=== PATIENT | female | born 1940 | race Caucasian/White ===

== ENCOUNTER 2016-08-05 06:26 | Inpatient (IN) | payer OTHER, MEDICARE ==
--- NOTE | 2016-07-02 14:06 | PAT Medication Instructions ---
Service Date Jul 02, 2016. Current Home Medication List Calcium (Caltrate), 600 MG PO BID Levothyroxine (Synthroid *), 75 MCG PO QAM Lisinopril (Lisinopril), Unknown Dose PO HS Simvastatin (Zocor), Unknown Dose PO QPM Warfarin Sodium (Coumadin), 4 MG PO T,R,SA,SUN Warfarin Sodium (Coumadin), 6 MG PO MWF Medication Instructions For Your Scheduled Surgery Warfarin Sodium (Coumadin) (patient to hold 5 days prior to surgery per surgeon instructions. Patient will check with cardiology to make sure they approve) - Hold the following medications evening prior to surgery: Lisinopril (Lisinopril), Unknown Dose PO HS - Hold the following medications the morning of surgery: Calcium (Caltrate), 600 MG PO BID - Take the following medications the morning of surgery with a sip of water: Levothyroxine (Synthroid *), 75 MCG PO QAM - Take the following medications as scheduled the night before surgery: Simvastatin (Zocor), Unknown Dose PO QPM Calcium (Caltrate), 600 MG PO BID If you have any questions please call us at [phone] or [phone] ( [place]) or [phone]
[2016-07-02 14:47] LABS: BASO % 0.4 %; BASO ABS # 0.02 K/uL (0-0.2); COMPLETE YES; EOS % 3.5 %; HEMATOCRIT 39.5 % (37-47); IG% 0.2 %; LYMPH % 31.4 %; LYMPH ABS # 1.71 K/uL (1.2-3.4); MEAN CORPUSCULAR HEMOGLOBIN 30.6 pg (25-34); MEAN CORPUSCULAR HGB CONC 33.7 g/dl (32-36); MEAN PLATELET VOLUME 9.7 fL (7.4-10.4); NEUT % 57.5 %; PLATELET COUNT 197 K/uL (130-400); RED BLOOD COUNT 4.34 M/uL (4.2-5.4); WHITE BLOOD COUNT 5.44 K/uL (4.8-10.8)
[2016-07-02 14:48] LABS: URINE APPEARANCE CLEAR (CLEAR); URINE BILIRUBIN NEG (NEG); URINE COLOR YELLOW; URINE NITRITE NEG (NEG); URINE PH 6.5 (4.5-7.5); URINE SPECIFIC GRAVITY 1.013 (1.000-1.030); UROBILINOGEN NEG (NEG); ZZUR CULT IF INDIC CLEAN CATCH NO
[2016-07-02 14:50] LABS: MANUAL MICROSCOPIC REQUIRED? NO; REVIEW REQ? NO
--- NOTE | 2016-07-02 14:54 | DIAGNOSTIC IMAGING REPORT ---
TWO VIEW CHEST CLINICAL HISTORY: Preoperative examination. FINDINGS: PA and lateral chest radiographs are compared to study dated 07/06/2008. The cardiomediastinal silhouette is unremarkable. The lungs and pleural spaces are clear. There is no pneumothorax. The skeletal structures are osteopenic. The bony thorax appears intact. Degenerative change is noted throughout the thoracic spine. IMPRESSION: No active disease in the chest. Electronically signed by: Glenn Fonseca M.D. 07/02/2016 2:52 PM Dictated Date/Time: 07/02/2016 2:42 PM
[2016-07-02 14:56] LABS: PROTHROMBIN TIME (PATIENT) 27.4 SECONDS (9.0-12.0)
[2016-07-02 14:57] LABS: INR 2.5 (0.9-1.1); PARTIAL THROMBOPLASTIN RATIO 1.5
[2016-07-02 15:16] LABS: BUN/CREATININE RATIO 23.6 (10-20); CALCIUM 9.5 mg/dl (8.5-10.1); CREATININE 0.74 mg/dl (0.60-1.20); POTASSIUM 3.8 mmol/L (3.5-5.1)
--- NOTE | 2016-08-02 12:40 | HISTORY & PHYSICAL EXAMINATION ---
DATE OF ADMISSION: 08/05/2016 CHIEF COMPLAINT: Left hip pain. HISTORY OF PRESENT ILLNESS: Ms. Farmer is a 75-year-old female with a multiple-year history of pain in her left hip. She also complains of instability. She rates her pain an 8/10. She has pain with her daily activities. She has limited standing and walking tolerance. Pain is worse with weightbearing. She has had injections without relief. She is taking Coumadin, so she is unable to take anti-inflammatories. PAST MEDICAL HISTORY: Hypercholesterolemia, thyroid disease, aFib. She denies diabetes or DVT. PAST SURGICAL HISTORY: Cardiac ablation, bilateral TKA and left foot reconstruction. SOCIAL HISTORY: The patient denies alcohol or tobacco use. She lives in a single radha home. She is and retired. FAMILY HISTORY: Negative for DVT. MEDICATIONS: Synthroid 0.75 mcg, simvastatin, lisinopril and Coumadin 4 mg 4 days, 6 mg 3 days. ALLERGIES: None. REVIEW OF SYSTEMS: See HPI. Ten other systems reviewed, all negative. PHYSICAL EXAMINATION: VITAL SIGNS: Height 4 feet 11 inches, weight 151 pounds. BMI is 31. GENERAL: This is a well-developed, well-nourished female who is alert and oriented x3. Mood and affect are appropriate. HEENT: Normocephalic, atraumatic. Mucous membranes are moist and intact. NECK: Supple without lymphadenopathy. HEART: Regular rate and rhythm without murmurs, rubs or gallops. LUNGS: Clear to auscultation without wheezes or rhonchi. ABDOMEN: Soft and nontender. Bowel sounds are equal and active. EXTREMITIES: No ecchymosis, redness or warmth. Thigh and calf are soft and nontender. Log roll of the hip reproduces pain in the groin. She is neurovascularly intact with +5/5 strength. She walks with an antalgic gait. X-RAY EXAMINATION: AP and lateral views show joint space narrowing and osteophyte formation of the left hip. PLAN: The patient will be admitted for a direct anterior left total hip arthroplasty. We will plan on resuming her Coumadin for DVT prophylaxis. She follows with Dr. Salgado in [place] and does her own fingerstick at home.
[2016-08-05] VITALS (12 sets, daily range): BP systolic 85–134; BP diastolic 53–87; PULSE 57–85; TEMP 35.5–36.8; O2SAT 94–100; Ht 149.9 cm; Wt 67.9 kg
[~2016-08-05] VITALS: Ht 149.9 cm; Wt 67.9 kg
[~2016-08-05 06:26] MED LIST: ACETAMINOPHEN 500 MG TAB PO SCH; CALCTAB5 PO; CEFAZOLIN 2000 MG/60 ML D5W IV SCH; CeleBREX 200 MG CAP PO SCH; DEXAMETHASONE 4 MG TAB PO SCH; FAMOTIDINE 20 MG TAB PO SCH; GABAPENTIN 300 MG CAP PO SCH; LACTATED RINGER'S 1000ML 1,000 ML IV SCH; LACTATED RINGER'S 1000ML 500 ML IV ONE; LACTATED RINGER'S 1000ML IV SCH; LSN5 PO; METOCLOPRAMIDE HCL 10 MG TAB PO SCH; OXYCODONE HCL 10 MG TABCR (OXYCONTIN) PO SCH; POLYMYXIN B SULFATE 100,000 UNITS in NSS 100ML IR SCH; ROPIVACAINE 5MG/ML 30 ML 150 MG, BUPIVACAINE/EPINEPHR 0.5% MPF 30 ML, KETOROLAC TROMETH... INFIL SCH; SIMV10TA2 PO; SYN75 PO; VANCOMYCIN INJ 400 MG in NSS 100ML IR SCH; WARF2TAB PO; WARF6TAB PO
[2016-08-05] MEDS ORDERED: BUPIVACAINE 0.5 % 5 MG/1 ML PF 10ML VIAL ONE (06:27)
[2016-08-05] MEDS ORDERED: LIDOCAINE HCL 2% 2 ML VIAL (20MG/ML) ONE (06:41)
[2016-08-05] MEDS ORDERED: PROPOFOL IV EMULSION 10 MG/ML 20 ML VIAL IV ONE (06:41)
[2016-08-05] MEDS ORDERED: MIDAZOLAM HCL 1 MG/ML 2ML VIAL ONE (06:41)
--- NOTE | 2016-08-05 06:54 | History & Physical Bridge Note ---
H&P Re-Evaluation Bridge Note: I have examined the patient, reviewed the History & Physical and in the interval since the performance of the History & Physical I have noted the following changes of clinical significance: No changes noted
[2016-08-05] MEDS ORDERED: ATROPINE SULFATE 0.1 MG/ML 5ML SYR IV PRN (07:00)
[2016-08-05] MEDS ORDERED: EpHEDrine SULFATE INJ 50 MG/ML AMP IV PRN (07:00)
[2016-08-05] MEDS ORDERED: ONDANSETRON INJ 2 MG/ML 2 ML VIAL IV PRN ×2 (07:00→09:30)
[2016-08-05] MEDS ORDERED: FENTANYL CITRATE INJ 50 MCG/1 ML 2 ML VIAL IV PRN (07:00)
[2016-08-05 07:24] LABS: PARTIAL THROMBOPLASTIN RATIO 1.1
[2016-08-05] MEDS ORDERED: POVIDONE-IODINE OP SOLN 30 ML BTL ONE (07:24)
[2016-08-05] MEDS ORDERED: ORTHO JOINT ANESTHETIC ONE (07:24)
[2016-08-05] MEDS ORDERED: BACITRACIN 50000 UNIT VIAL ONE (07:24)
[2016-08-05] MEDS ORDERED: ONDANSETRON INJ 2 MG/ML 2 ML VIAL ONE (08:09)
[2016-08-05] MEDS ORDERED: DEXAMETHASONE SOD INJ 4 MG/ML VIAL ONE (08:09)
[2016-08-05] MEDS ORDERED: PHENYLEPHRINE 100MCG/ML 5ML SYR ONE (09:22)
--- NOTE | 2016-08-05 09:22 | [facility] Post Operative Brief Note ---
Immediate Operative Summary Operative Date Aug 05, 2016. Pre-Operative Diagnosis Left Hip Degenerative Joint Disease Post-Operative Diagnosis Left Hip Degenerative Joint Disease Procedure(s) Performed Left total hip arthroplasty; direct anterior approach Surgeon Dr Luís Huston Communications Coordinator Surgeon(s) Amalia Kaplan PA-C Estimated Blood Loss 150 Findings DJD Specimens A: Left Femoral Head Complication(s) None Disposition Recovery Room / PACU
--- NOTE | 2016-08-05 09:24 | DIAGNOSTIC IMAGING REPORT ---
INTRAOPERATIVE FLUOROSCOPIC IMAGE OF THE LEFT HIP CLINICAL HISTORY: Left hip arthroplasty. COMPARISON STUDY: No previous studies for comparison. Fluoroscopy time: 11.5 seconds. FINDINGS: This single fluoroscopic image demonstrates anatomic alignment of left hip arthroplasty. There is an acetabular screw. No fracture or unexpected radiopaque foreign body is evident. IMPRESSION: Expected findings during total left hip arthroplasty. Electronically signed by: Ryan Luevano M.D. 08/05/2016 9:23 AM Dictated Date/Time: 08/05/2016 9:22 AM
[2016-08-05] MEDS ORDERED: BISACODYL 10 MG SUPP PR PRN (09:30)
[2016-08-05] MEDS ORDERED: OXYCODONE HCL IR 5 MG TAB (IMMEDIATE RELEASE) PO PRN (09:30)
[2016-08-05] MEDS ORDERED: MoRPHine SULFATE 2 MG/ML CARP IV PRN (09:30)
[2016-08-05] MEDS ORDERED: METOCLOPRAMIDE HCL INJ 5 MG/ML 2 ML VIAL IV PRN (09:30)
[2016-08-05] MEDS ORDERED: TRAMADOL HCL 50 MG TAB PO PRN (09:30)
[2016-08-05] MEDS ORDERED: DiphenhydrAMINE HCL 50 MG/ML VIAL IV PRN (09:30)
[2016-08-05] MEDS ORDERED: ZOLPIDEM TARTRATE 5 MG TAB PO PRN (09:30)
[2016-08-05] MEDS ORDERED: SOD PHOSPHATE/SOD BIPHOSPHATE ENEMA 132 ML BTL PR PRN (09:30)
[2016-08-05] MEDS ORDERED: ALUMINUM/MAGNESIUM/SIMETH (MAALOX MAX) 30 ML UDC PO PRN (09:30)
[2016-08-05] MEDS ORDERED: MAGNESIUM HYDROXIDE SUSP 30 ML UDC PO PRN (09:30)
--- NOTE | 2016-08-05 10:17 | DIAGNOSTIC IMAGING REPORT ---
LEFT PELVIS/UNILATERAL HIP 1 VIEW CLINICAL HISTORY: Postoperative evaluation. COMPARISON: Intraoperative fluoroscopic images August 05, 2016 FINDINGS: Alignment of the total left hip arthroplasty is anatomic. No fracture or unexpected radiopaque foreign body is identified. There is an acetabular screw and surgical drain. IMPRESSION: Expected findings following total left hip arthroplasty. Electronically signed by: Ryan Luevano M.D. 08/05/2016 10:16 AM Dictated Date/Time: 08/05/2016 10:12 AM
--- NOTE | 2016-08-05 10:29 | Anesthesiology Progress Note ---
Anesthesia Post Op Note Date & Time Aug 05, 2016 at 10:29 Vital Signs Pain Intensity: 0 Vital Signs Past 12 Hours Date Time Temp Pulse Resp B/P Pulse Ox O2 Delivery O2 Flow Rate FiO2 08/05/16 10:07 36.7 08/05/16 10:03 101/56 08/05/16 10:01 69 08/05/16 10:01 68 16 100 08/05/16 09:58 98/54 08/05/16 09:56 68 08/05/16 09:56 68 16 100 08/05/16 09:53 106/60 08/05/16 09:51 73 15 100 08/05/16 09:51 73 15 08/05/16 09:48 93/58 08/05/16 09:46 36.3 69 14 93/58 98 Nasal Cannula 3 08/05/16 06:51 36.4 72 16 134/87 98 Room Air 08/05/16 06:51 36.4 72 16 134/87 98 Room Air Notes Mental Status: alert / awake / arousable, participated in evaluation Pt Amnestic to Procedure: Yes Nausea / Vomiting: adequately controlled Pain: adequately controlled Airway Patency, RR, SpO2: stable & adequate BP & HR: stable & adequate Hydration State: stable & adequate Neuraxial Anesthesia: was administered, sensory block is resolving Anesthetic Complications: no major complications apparent
[2016-08-05] MEDS ORDERED: D5W AND 1/2NSS + 20MEQ KCL 1,000 ML IV SCH (12:00)
[2016-08-05] MEDS: KETOROLAC TROMETHAMINE 15 MG/ML VIAL IV. SCH ×3 (13:11→23:31)
[2016-08-05] MEDS: TRANEXAMIC ACID INJ 1,000 MG in SODIUM CHLORIDE 0.9% 100ML 100 ML IV SCH ×2 (13:12→14:14)
[2016-08-05] MEDS: ACETAMINOPHEN 500 MG TAB PO SCH ×2 (14:13→20:48)
[2016-08-05] MEDS ORDERED: INFLUENZA ADMINISTRATION CHARGE ONE (14:45)
[2016-08-05] MEDS ORDERED: INFLUENZA VIRUS QUAD VACCINE 0.5 ML SYR IM. ONE (14:45)
[2016-08-05] MEDS ORDERED: WARFARIN SOD 6 MG TAB PO SCH (16:00)
[2016-08-05] MEDS: CEFAZOLIN IV 1,000 MG in DEXTROSE 5% 50ML 50 ML IV SCH ×2 (16:41→23:31)
--- NOTE | 2016-08-05 17:54 | CARDIOLOGY CONSULTATION REPORT ---
DATE OF CONSULTATION: 08/05/2016 REASON FOR CONSULTATION: 1. Postoperative medical and cardiology management. 2. Nonobstructive CAD. 3. Paroxysmal atrial fibrillation status post radiofrequency ablation. 4. Mild to moderate MR. HISTORY OF PRESENT ILLNESS: Mrs. Farmer is a very pleasant 75-year-old white female with a history of non-obstructive CAD, paroxysmal atrial fibrillation status post radiofrequency ablation November 2013, mild to moderate MR, hypertension, hypercholesterolemia, hypothyroidism, and osteoarthritis, who underwent a left total hip arthroplasty earlier today with Dr. Luís Huston. Thus far, postoperative course has been largely unremarkable. The patient is currently being seen in room #317. Her blood pressures running relatively low, but she is asymptomatic. She does have problems with her blood pressure running low once in a while even at home. The patient denies any chest pain, heaviness, tightness, or pressure. No neck, jaw, back, or arm pain. No shortness of breath or recent unusual dyspnea on exertion. She further denies any orthopnea, PND, palpitations, syncope, or near syncope. The patient had a cardiac catheterization performed in November of 2012, which showed a normal LMCA, 40% osteal LAD stenosis, lumen irregularities of the left circumflex, normal obtuse marginal branches, codominant RCA without disease, and an LEVF of 55%. MEDICATIONS: 1. Celebrex 200 mg daily. 2. Multivitamin daily. 3. Protonix 40 mg a day. 4. Levothyroxine 75 mcg daily. 5. Senokot 17.2 mg at bedtime. 6. Lisinopril 5 mg p.o. at bedtime. 7. Zocor 10 mg q.p.m. 8. Ancef 1 g IV q. 8 hours. 9. Warfarin 6 mg daily. 10. Acetaminophen 1000 mg q. 8 hours. 11. Toradol 15 mg IV q. 6 hours. 12. OxyIR 1-2 tablets every 4 hours as needed for pain. 13. Morphine sulfate 2 mg IV q. 2 hours while awake as needed for severe breakthrough pain. 14. Milk of magnesia p.r.n. 15. Dulcolax suppository p.r.n. 16. Fleets enema p.r.n. 17. Benadryl 25 mg IV or p.o. q. 8 hours p.r.n. for itching. 18. Maalox Max p.r.n. 19. Ambien 5 mg at bedtime p.r.n. for sleep. 20. Zofran 4 mg IV q. 6 hours p.r.n. for nausea or vomiting. 21. Reglan 10 mg IV q. 6 hours p.r.n. for nausea or vomiting. 22. Ultram 1-2 tablets every 4 hours as needed for pain. ALLERGIES: NKDA. PAST MEDICAL HISTORY: 1. Osteoarthritis status post left total hip arthroplasty earlier today. 2. Nonobstructive CAD, November 2012 cardiac catheterization. 3. History of paroxysmal atrial fibrillation status post successful radiofrequency ablation, November 2013. 4. Normal LV size and systolic function. LVEF 55-60%, mild to moderate MR. 5. Hypertension. 6. Dyslipidemia. 7. Hypothyroidism. 8. History of bilateral total knee arthroplasties. 9. History of left foot surgery. SOCIAL HISTORY: The patient is and accompanied by her and daughter. She is a nonsmoker. Does not use tobacco products. Does not drink alcohol. She is retired from work. FAMILY HISTORY: Noncontributory. PHYSICAL EXAMINATION: VITAL SIGNS: Temperature is 36.5 degrees Celsius, pulse is 70 and regular, respiratory rate is 16 and unlabored, blood pressure is 85/53 and SpO2 is 96% on room air. GENERAL: The patient is in no acute distress. HEENT: Head is atraumatic and normocephalic. EOMs intact. Sclerae are anicteric. Face is symmetric. No perioral cyanosis. Mucous membranes moist. NECK: Without thyromegaly, adenopathy or JVD. Carotid upstrokes are +2 bilaterally without bruits. CHEST AND LUNGS: Clear to auscultation throughout all lung burton. No wheezes, rales or rhonchi. CARDIOVASCULAR: S1 and S2 are regular with a grade 2/6 apical holosystolic murmur which radiates to the left axilla and also audible at the right upper sternal border. No diastolic murmur is appreciated. No obvious gallops or rubs. PMI is nondisplaced. No lifts, heaves, or thrills. No abdominal aortic or renal bruits. ABDOMEN: Bowel sounds present. No masses, organomegaly or tenderness. EXTREMITIES: Without edema. Left hip is dressed. NEUROLOGIC: The patient is awake, alert and oriented. Pleasant and cooperative. Answers questions appropriately. Speech is clear. Normal movement bilateral upper extremities. ASSESSMENT: 1. Postoperative day #1 left total hip arthroplasty. 2. Postoperative hypotension, asymptomatic. 3. Nonobstructive CAD on cardiac catheterization in 2012. 4. Paroxysmal Atrial Fibrillation s/p radiofrequency ablation, 2013. 5. [id number] score was 3. 6. Mild to moderate mitral regurgitation. 7. Hypertension. 8. Dyslipidemia. 9. Hypothyroidism. 10. No signs or symptoms of heart failure. 11. No anginal pectoris or anginal equivalent symptoms. 12. No evidence of recurrent dysrhythmia. PLAN: 1. The patient is symptomatically stable despite her relatively low blood pressure. 2. Keep the patient supine until BP comes up. 3. Give bolus of D5 half normal saline with 20 mEq of KCL and 500 mL/hour x2 hours, then reduce to maintenance dose of 100 mL/hour. 4. Continue Lisinopril with hold parameters based on systolic blood pressure. 5. Resume Coumadin to reduce the risk of stroke associated with atrial fibrillation, and also to reduce DVT prophylaxis. 6. Other DVT prophylaxis measures as per surgeon. 7. Physical therapy as per protocol. 8. Monitor daily hemoglobin and hematocrit, PRP, and protime/INR. 9. We will continue to follow along while hospitalized. KLEVER
[2016-08-05] MEDS: D5W AND 1/2NSS + 20MEQ KCL 1,000 ML IV SCH (20:47)
[2016-08-05] MEDS ORDERED: LISINOPRIL 5 MG TAB PO SCH (21:00)
[2016-08-05] MEDS ORDERED: SIMVASTATIN 10 MG TAB PO SCH (21:00)
[2016-08-05] MEDS ORDERED: SENNA 8.6 MG TAB PO SCH (21:00)
--- NOTE | 2016-08-05 22:06 | OPERATIVE REPORT ---
DATE OF OPERATION: 08/05/2016 PREOPERATIVE DIAGNOSIS: Degenerative arthritis, left hip. POSTOPERATIVE DIAGNOSIS: Same. PROCEDURE: Left total hip replacement. SURGEON: Dr. Huston. CONSUMER LOAN OFFICER: TAYLOR Ramsay. ANESTHESIA: Spinal. BLOOD LOSS: 150 mL. REPLACEMENT FLUIDS: 1500 mL crystalloid. DRAINS: Hemovacs x1. CULTURES: None. COMPLICATIONS: None. COMPONENTS USED: [employer] hip system: Acetabulum size 48, femur size 6 standard offset, femoral head minus 3 32 mm. NOTE: TAYLOR Moraes was present and assisted throughout due to the complicated nature of this case. She helped with preparation and set up. She first assisted throughout and personally closed the capsule, subcutaneous and skin layers and applied the postoperative dressing. DESCRIPTION: Following satisfactory spinal, the patient was supine. The left leg was placed in the traction device, the right leg in the well leg velazquez. The leg was prepared with ChloraPrep and draped sterilely. Following a surgical time-out, an anterior approach in the interval between the sartorius and tensor muscles was completed, the circumflex femoral vessels were identified and ligated and an anterior capsulotomy was performed exposing the arthritic femoral neck and head. The femoral neck and head were trimmed and removed. The acetabular self-retraining retractor was placed. Acetabular reaming was completed under fluoroscopic guidance and a 48 shell was impacted into an anatomic position and secured with a dome screw. Local anesthetic and the polyethylene liner were placed. Attention was turned to the femur was placed in a position of external rotation, extension and adduction. The femoral canal was prepared up to the size 6. A trial reduction with fluoroscopy showed good fit and fill of the proximal canal and confucianism of leg lengths using anatomic landmarks. The hip was dislocated, trial component was removed, the final implant was placed and after irrigation, the hip was reduced. The Betadine soak was performed. After 5 minutes, the Betadine was irrigated. The capsule was closed with 1-0 Vicryl interrupted. The fascia was closed with a running suture of #1 Vicryl, the subcutaneous tissues with 2-0 Vicryl and the skin with a running subcuticular stitch of 3-0 V-Loc. Dermabond and a dry dressing were applied. The patient was returned to her bed in stable condition. I attest to the content of the Intraoperative Record and any orders documented therein. Any exceptio ns are noted below.
[2016-08-06 03:56] VITALS: BP 127/79; PULSE 81; TEMP 36.4; O2SAT 93
[2016-08-06] MEDS: KETOROLAC TROMETHAMINE 15 MG/ML VIAL IV. SCH ×2 (05:47→13:29)
[2016-08-06] MEDS: ACETAMINOPHEN 500 MG TAB PO SCH ×2 (05:48→13:30)
[2016-08-06] MEDS: D5W AND 1/2NSS + 20MEQ KCL 1,000 ML IV SCH (05:48)
[2016-08-06] MEDS ORDERED: LEVOTHYROXINE 75 MCG TAB PO SCH (06:00)
[2016-08-06 06:16] LABS: COMPLETE YES; HEMATOCRIT 28.1 % (37-47); IG% 0.2 %; LYMPH ABS # 0.92 K/uL (1.2-3.4); MEAN CELL VOLUME 89.2 fL (80-100); MEAN CORPUSCULAR HEMOGLOBIN 30.8 pg (25-34); MEAN CORPUSCULAR HGB CONC 34.5 g/dl (32-36); MONO % 8.2 %; NEUT % 83.6 %; PLATELET COUNT 169 K/uL (130-400); RED BLOOD COUNT 3.15 M/uL (4.2-5.4); WHITE BLOOD COUNT 11.52 K/uL (4.8-10.8)
[2016-08-06 06:26] LABS: INR 1.1 (0.9-1.1); PROTHROMBIN TIME (PATIENT) 11.3 SECONDS (9.0-12.0)
[2016-08-06 06:42] LABS: CALCIUM 8.5 mg/dl (8.5-10.1); CREATININE 0.77 mg/dl (0.60-1.20); POTASSIUM 4.3 mmol/L (3.5-5.1)
[2016-08-06 07:33] VITALS: BP 108/71; PULSE 72; TEMP 36.6; O2SAT 100
--- NOTE | 2016-08-06 07:42 | Orthopedic Progress Note ---
Orthopedic Progress Note Date of Service Aug 06, 2016. Subjective Post OP Day: 1 Reports: feeling well, pain controlled w PO medications, Denies: SOB, complaints , light headedness, nausea / vomiting Objective calves soft nontender, N/V intact, hip located, dressing C/D/I, toes mobile, hemovac drainage (50 last shift ) Date Time Temp Pulse Resp B/P Pulse Ox O2 Delivery O2 Flow Rate FiO2 08/06/16 07:33 36.6 72 17 108/71 100 Room Air 08/06/16 03:56 36.4 81 18 127/79 93 Room Air 08/05/16 23:24 36.4 67 18 101/68 96 Room Air 08/05/16 20:30 93/61 08/05/16 19:30 Room Air 08/05/16 19:21 36.5 85 16 124/72 94 Room Air 08/05/16 16:51 Nasal Cannula 2.0 08/05/16 15:48 68 90/56 08/05/16 14:50 36.5 71 16 85/53 96 Room Air 08/05/16 13:36 36.5 83 18 94/62 96 Room Air 08/05/16 12:40 36.8 71 16 116/76 96 Nasal Cannula 2.0 08/05/16 11:59 35.5 08/05/16 11:37 57 16 93/58 100 Nasal Cannula 2.0 08/05/16 11:10 63 16 107/72 98 Nasal Cannula 2.0 08/05/16 10:40 99 Nasal Cannula 2.0 08/05/16 10:40 66 16 101/65 99 Nasal Cannula 2.0 08/05/16 10:40 99 Nasal Cannula 2.0 08/05/16 10:28 62 08/05/16 10:28 63 16 98/59 100 08/05/16 10:23 67 97/54 100 08/05/16 10:23 66 08/05/16 10:18 64 13 08/05/16 10:18 64 13 96/55 99 08/05/16 10:13 66 11 98/53 99 08/05/16 10:13 66 11 08/05/16 10:08 62 14 96/57 100 08/05/16 10:08 63 14 08/05/16 10:07 36.7 08/05/16 10:03 101/56 08/05/16 10:01 69 08/05/16 10:01 68 16 100 08/05/16 09:58 98/54 08/05/16 09:56 68 08/05/16 09:56 68 16 100 08/05/16 09:53 106/60 08/05/16 09:51 73 15 100 08/05/16 09:51 73 15 08/05/16 09:48 93/58 08/05/16 09:46 36.3 69 14 93/58 98 Nasal Cannula 3 Laboratory Results 24 Hours: Test 08/06/16 05:45 White Blood Count 11.52 K/uL Red Blood Count 3.15 M/uL Hemoglobin 9.7 g/dL Hematocrit 28.1 % Mean Corpuscular Volume 89.2 fL Mean Corpuscular Hemoglobin 30.8 pg Mean Corpuscular Hemoglobin Concent 34.5 g/dl Platelet Count 169 K/uL Mean Platelet Volume 9.0 fL Neutrophils (%) (Auto) 83.6 % Lymphocytes (%) (Auto) 8.0 % Monocytes (%) (Auto) 8.2 % Eosinophils (%) (Auto) 0.0 % Basophils (%) (Auto) 0.0 % Neutrophils # (Auto) 9.64 K/uL Lymphocytes # (Auto) 0.92 K/uL Monocytes # (Auto) 0.94 K/uL Eosinophils # (Auto) 0.00 K/uL Basophils # (Auto) 0.00 K/uL Prothromb Time International Ratio 1.1 Prothrombin Time 11.3 SECONDS Assessment & Plan Assessment: POD 1 ALTHEA Plan: HOME TODAY W HH PREFERS ADVANTAGE LEAVE DRESSING ON FOR 7 DAYS Inhouse Planning Pain Management: Celebrex, PO Tylenol, Oxy IR DVT Prophylaxis: TEDs, SCDs, ASA Discharge Planning Discharge Planning: home with home health Pain Management: Celebrex, PO Tylenol, Oxy IR DVT Prophylaxis: TEDs, ASA
--- NOTE | 2016-08-06 08:01 | Discharge Instructions ---
Discharge Instructions Admission Reason for Admission: Left Hip Degenerative Arthritis Discharge Discharge Diagnosis / Problem: sp left ALTHEA, direct anterior Discharge Goals Goal(s): Decrease discomfort, Improve function, Increase independence Activity Recommendations Activity Limitations: per Instructions/Follow-up section . Instructions / Follow-Up Instructions / Follow-Up ACTIVITY RECOMMENDATIONS: SELF CARE INSTRUCTIONS AFTER TOTAL HIP REPLACEMENT : Direct Anterior Approach Until the incision and soft tissues around your hip have healed, there is a possibility that the hip prosthesis could dislocate. A. Hip flexion ( Up & Down out of chair or steps ) may be difficult. This is normal. B. Numbness in front of the thigh is also normal for a few weeks. C. Use hand rails when walking on stairs. D. Wear low heeled shoes with non-slip soles. E. Be sure that your floors are free of things that could trip you - throw rugs , electrical cords, small objects. Avoid wet and waxed floors, especially with crutches and canes. F. Try to walk several times a day with rest periods between. G. Continue with all the exercises taught to you in the hospital. Again, make walking a part of your daily routine. SPECIAL CARE INSTRUCTIONS: VERY IMPORTANT TO READ AND REVIEW A. You may still be at risk for phlebitis and blood clots. 1. Wear surgical stockings (CARSON hose) for 2 weeks after surgery to improve circulation and reduce swelling. 3. High risk patients may be prescribed a stronger blood thinner if necessary. 4. If you are on Coumadin normally, your family doctor/product director should monitor your blood work. Expect a phone call the day of or the day after bloodwork is drawn to adjust your dosage. B. You must take antibiotics before having dental work, bladder, bowel and other surgery. Your doctor will provide you with a permanent card to carry describing precautions. C. Call [facility] if you have a fever, redness or swelling around the incision, cloudy drainage from incision, or sudden increase in pain in your hip, not relieved by your regular pain medication. D. Please call the office at if you have any concerns or questions about your operation or recovery. * YOU MAY SHOWER, NO TUB BATHS UNTIL CLEARED BY YOUR DOCTOR. - Keep an extra close eye on the top portion of your incision. Be sure to keep clean & dry. * WEAR CARSON HOSE 20 HOURS PER DAY FOR 2 WEEKS. * YOU MAY PROGRESS FROM A WALKER, TO A CANE, TO INDEPENDENT AT YOUR OWN PACE. * MOST PATIENTS WILL HAVE HOME NURSING FOR THERAPY. IF YOU DECIDE TO DO OUTPATIENT PHYSICAL THERAPY, PLEASE SCHEDULE THIS 3 TIMES PER WEEK. MAINTAIN FINGERSTICK BLOOD DRAWS FOR COUMADIN. PLEASE CONTINUE TO FOLLOW WITH DR. GU. *NEW AQUACEL DRESSING- KEEP SURGICAL DRESSING INTACT X 1 WEEK THEN REMOVE. SEE INSTRUCTIONS BELOW FOR REMAINING DRESSING. * DERMABOND Prineo- This is a mesh tape dressing that is covered with glue. It should remain in place until the incision is properly healed, usually 10-14 days. This dressing is designed to naturally slough off. You may trim the excess mesh tape as it peels off. Incision may be briefly wet in a shower. Dry immediately by blotting with a clean, dry towel. Do not bath or swim until instructed by your doctor. Do not scratch, rub, or pick at the dressing. Do not apply any topical ointments or lotions until dressing is completely removed and/or instructed by your doctor. There may be a small piece of suture material at one end of your incision. Do not pull or trim this. If it is bothersome or catching on clothing, you may cover it with a band-aid. FOLLOW UP VISIT: If appointment is not already scheduled: Please call [facility] to make a follow-up appointment for 2 weeks after your surgery at . Current Hospital Diet Patient's current hospital diet: Regular Diet Discharge Diet Recommended Diet: Regular Diet Procedures Procedures Performed: Left total hip arthroplasty; direct anterior approach Pending Studies Studies pending at discharge: no Medical Emergencies . Who to Call and When: Medical Emergencies: If at any time you feel your situation is an emergency, please call 911 immediately. . Non-Emergent Contact Non-Emergency issues call your: Primary Care Provider . "Provider Documentation" section prepared by Amalia Ramsay. VTE Core Measure Inpt VTE Proph given/why not?: Other Anticoagulation, T.E.D. Stockings, SCD's
[2016-08-06] MEDS ORDERED: ACET-1138 PO (08:03)
[2016-08-06] MEDS ORDERED: SNK PO (08:03)
[2016-08-06] MEDS ORDERED: CLB200 PO (08:03)
[2016-08-06] MEDS ORDERED: RXC5 PO (08:03)
[2016-08-06] MEDS ORDERED: ONDA8TAB6 PO (08:03)
[2016-08-06] MEDS ORDERED: PANTOprazole SOD 40 MG TAB PO SCH (09:00)
[2016-08-06] MEDS ORDERED: MULTIVITAMIN TAB PO SCH (09:00)
--- NOTE | 2016-08-06 09:28 | CARDIOLOGY PROGRESS NOTE ---
DATE: 08/06/2016 DATE: 08/06/2016. HISTORY OF PRESENT ILLNESS: Mrs. Farmer is a 75-year-old white female who is now postoperative day #1 from a left total hip arthroplasty. Her perioperative course has been complicated by postoperative blood loss anemia. She is asymptomatic with it. The patient was moderately hypotensive yesterday, but that resolved following the administration of IV fluids and holding her lisinopril. The patient is currently being seen in room 317. She is up walking around with a walker. She denies any chest pain, heaviness, tightness or pressure. Denies any neck, jaw, back, or arm pain. No shortness of breath, unusual dyspnea on exertion, orthopnea or PND. She further denies any palpitations, syncope, or near syncope. Her surgical pain is well controlled. PHYSICAL EXAMINATION: VITAL SIGNS: Temperature is 36.6 degrees Celsius, pulse 72 and regular, respiratory rate 17 and unlabored, blood pressure is 108/70, SPO2 is 100% on room air. GENERAL: The patient is in no acute distress. HEAD, EYES, EARS, NOSE, AND THROAT: Head is atraumatic, normocephalic. EOMs intact. Sclerae are anicteric. Face is symmetric. No perioral cyanosis. Mucous membranes moist. NECK: Without thyromegaly, adenopathy or JVD. Carotid upstrokes +2 bilaterally without bruits. CHEST AND LUNGS: Clear to auscultation throughout all lung burton, no wheezes, rales or rhonchi. CARDIOVASCULAR: S1 and S2 are regular with a grade 2/6 apical holosystolic murmur which radiates to left axilla and also audible at the right upper sternal border. No diastolic murmurs appreciated. No obvious gallops or rubs. PMI is nondisplaced. No lifts, heaves, or thrills. No abdominal aortic or renal bruits. ABDOMINAL EXAMINATION: Bowel sounds present. No masses, organomegaly or tenderness. EXTREMITIES: Without edema. Left hip is dressed with surgical drain in place. NEUROLOGIC EXAMINATION: The patient is awake, alert and oriented. Pleasant and cooperative. Answers questions appropriately. Speech is clear. The patient ambulating with a walker. LABORATORY DATA: White blood cell count is 11.52. Hemoglobin 9.7 g/dL, hematocrit 28.1%. Platelet count is 169,000. Sodium is 143, potassium 4.3 mmol/L. BUN is 18 mg/dL, creatinine 0.77 mg/dL. Random glucose 149 mg/dL. INR is 1.1. ASSESSMENT: 1. Postoperative day #1 left total hip arthroplasty. 2. Acute postoperative blood loss anemia, asymptomatic. 3. 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 4. Paroxysmal Atrial Fibrillation s/p radiofrequency ablation in 2013. 5. CHADS-VASc score is 3. 6. Mild to moderate mitral regurgitation. 7. Hypertension, controlled. 8. Dyslipidemia. 9. Hypothyroidism. 10. Postoperative hypotension, resolved. 11. No signs or symptoms of heart failure. 12. No angina pectoris or anginal equivalent symptoms. 13. No evidence of recurrent dysrhythmia. PLAN: 1. The patient remains asymptomatic at this time. 2. Continue Lisinopril with hold parameters based on systolic blood pressure. 3. Coumadin has been restarted. Goal INR is 2.0-3.0. She is on Coumadin chronically. This will also serve to reduce DVT risk. 4. Ongoing physical therapy as per protocol. 5. Continue to monitor daily H&H, PRP and protime. 6. The patient is stable from medical and cardiac standpoints. 7. We will continue to follow. [facility]
[2016-08-06 10:46] VITALS: BP 96/65; PULSE 70; TEMP 36.4; O2SAT 98
[2016-08-06 13:41] VITALS: BP 96/65; PULSE 70; TEMP 36.4; O2SAT 98
[2016-08-08] MEDS ORDERED: CeleBREX 200 MG CAP PO SCH (08:00)
--- NOTE | 2016-08-12 14:30 | DISCHARGE SUMMARY ---
DISCHARGE DIAGNOSIS: Degenerative joint disease, left hip. SECONDARY DIAGNOSIS: Acute blood loss anemia. CONSULTS: Dr. Salgado. COMPLICATIONS: None. PROCEDURE: The patient underwent a direct anterior left total hip arthroplasty with Dr. Huston on 08/05/2016. BRIEF HISTORY: Please see previously dictated history and physical. HOSPITAL SUMMARY: The patient was admitted on the above day for the above procedure. Procedure went without complication. Postop day 1, the patient was feeling well without complaints. She denied chest pain or shortness of breath. Vital signs were stable. She was afebrile. Dressing was clean, dry and intact. She was neurovascularly intact. Hip was located. Hemovac drained 50 mL. Hemoglobin was 9.7. The patient began physical therapy per protocol. She was discharged to home later that day in stable condition. For further review please see the chart. Lab, x-ray data and discharge instructions as per chart.
== END 2016-08-06 14:00 | disposition home health service (06) | DRG 470 ==
LOC: ENRESERVTM → ENRESERVDT → C.ACU 06:26 → C.3E 06:30 → EDBEDREQ 10:16
PROVIDERS: ADMIT Orthopaedic Surgery; ATTEND Orthopaedic Surgery
PROC: 0SRB04Z Replacement of Left Hip Joint with Ceramic on Polyethylene Synthetic Substitute, Open Approach (ICD-10-PCS; principal; 2016-08-05 07:45)
DX: M16.12 Unilateral primary osteoarthritis, left hip (principal); D62 Acute posthemorrhagic anemia; E78.00 Pure hypercholesterolemia, unspecified; E78.5 Hyperlipidemia, unspecified; I48.0 Paroxysmal atrial fibrillation; I25.10 Atherosclerotic heart disease of native coronary artery without angina pectoris; E03.9 Hypothyroidism, unspecified; I11.9 Hypertensive heart disease without heart failure; E66.9 Obesity, unspecified; M54.2 Cervicalgia; M54.5 Low back pain; I95.81 Postprocedural hypotension; I34.0 Nonrheumatic mitral (valve) insufficiency; Z68.31 Body mass index [BMI] 31.0-31.9, adult; Z98.890 Other specified postprocedural states; Z96.653 Presence of artificial knee joint, bilateral; Z79.899 Other long term (current) drug therapy; Z79.01 Long term (current) use of anticoagulants; Z23 Encounter for immunization

== ENCOUNTER 2017-09-15 06:49 | Inpatient (IN) | payer OTHER ==
[2017-09-12 09:20] VITALS: BMI 29.0
--- NOTE | 2017-09-12 09:53 | PAT Medication Instructions ---
Service Date Sep 12, 2017. Current Home Medication List Acetaminophen (Tylenol), 500 MG PO PRN Biotin (Biotin), 1 MG PO HS Ibuprofen Tab (Advil), 200 MG PO PRN Levothyroxine Sodium (Levothyroxine Sodium), 1 TAB PO QAM Lisinopril (Lisinopril), 2.5 MG PO HS Sennosides-Docusate Sodium (Stool Softener), 1 TAB PO PRN Terbinafine Hcl (Terbinafine Hcl), 1 TAB PO HS Warfarin Sod (Coumadin), 3 MG PO THURS Warfarin Sodium (Coumadin), 6 MG PO 6XWEEK [Calcium], 1 TAB PO PRN Medication Instructions For Your Scheduled Surgery - Last dose was 08/12/17 per surgeon/prescribing physician: Warfarin Sod (Coumadin), 3 MG PO THURS Warfarin Sodium (Coumadin), 6 MG PO 6XWEEK - Check with surgeon for instructions: Ibuprofen Tab (Advil), 200 MG PO PRN - Hold the following medications 24 hours prior to surgery: Lisinopril (Lisinopril), 2.5 MG PO HS - Hold the following medications the morning of surgery: Sennosides-Docusate Sodium (Stool Softener), 1 TAB PO PRN [Calcium], 1 TAB PO PRN - Take the following medications the morning of surgery with a sip of water: Levothyroxine Sodium (Levothyroxine Sodium), 1 TAB PO QAM Acetaminophen (Tylenol), 500 MG PO PRN (okay to take up to 4 hours prior to surgery if needed) - Take the following medications as scheduled the night before surgery: [Calcium], 1 TAB PO PRN Sennosides-Docusate Sodium (Stool Softener), 1 TAB PO PRN (if needed) Acetaminophen (Tylenol), 500 MG PO PRN (if needed) Biotin (Biotin), 1 MG PO HS Terbinafine Hcl (Terbinafine Hcl), 1 TAB PO HS If you have any questions please call us at [phone] or [phone] or [phone]
--- NOTE | 2017-09-12 11:01 | DIAGNOSTIC IMAGING REPORT ---
CHEST 2 VIEWS ROUTINE HISTORY: Preop. COMPARISON: Chest 07/02/2016. FINDINGS: The lungs are clear. Cardiac silhouette is normal in size. No pleural effusions. No pneumothorax. IMPRESSION: No acute process. Electronically signed by: Anthony Santoro M.D. 09/12/2017 10:59 AM Dictated Date/Time: 09/12/2017 10:56 AM
[2017-09-12 11:53] LABS: BASO % 0.4 %; BASO ABS # 0.02 K/uL (0-0.2); EOS % 3.1 %; EOS ABS # 0.14 K/uL (0-0.5); HEMATOCRIT 37.8 % (37-47); HEMOGLOBIN 12.9 g/dL (12.0-16.0); MEAN CELL VOLUME 91.7 fL (80-100); MEAN CORPUSCULAR HEMOGLOBIN 31.3 pg (25-34); MEAN CORPUSCULAR HGB CONC 34.1 g/dl (32-36); MEAN PLATELET VOLUME 9.6 fL (7.4-10.4); MONO % 9.1 %; MONO ABS # 0.41 K/uL (0.11-0.59); NEUT % 56.4 %; NEUT ABS # 2.55 K/uL (1.4-6.5); PLATELET COUNT 220 K/uL (130-400); RED CELL DISTRIBUTION WIDTH CV 13.8 % (11.5-14.5); RED CELL DISTRIBUTION WIDTH SD 46.5 fL (36.4-46.3); WHITE BLOOD COUNT 4.52 K/uL (4.8-10.8)
[2017-09-12 12:10] LABS: INR 1.2 (0.9-1.1); PTT PATIENT 29.2 SECONDS (21.0-31.0)
[2017-09-12 12:53] LABS: ALBUMIN 3.2 gm/dl (3.4-5.0); CALCIUM 8.9 mg/dl (8.5-10.1); CREATININE 0.72 mg/dl (0.60-1.20); POTASSIUM 4.6 mmol/L (3.5-5.1)
[2017-09-12 12:56] LABS: TOTAL PROTEIN 6.4 gm/dl (6.4-8.2)
--- NOTE | 2017-09-14 16:00 | History and Physical ---
History & Physical Date Sep 14, 2017. Chief Complaint RIGHT KNEE PAIN S/P RIGHT TKA 2009 History of Present Illness The patient is a 77 year old female with complaints of right knee pain and found to have loose patella component. Workup for infection was negative. No problems with healing afterwards. Pt will need to have revision surgery. Past Medical/Surgical History Surgical Problems: (1) Post-operative state Additional History Hepatic Disease: No Endocrine Disorder: No Kidney Disease: No Hypertension: No Heart Disease: Yes (history of afib and had ablatioin) Bleeding Tendencies: pt was on coumadin, stopped 5 days preop Infectious Diseases: No Allergies Coded Allergies: No Known Allergies (Verified , 09/12/17) Home Medications Scheduled Acetaminophen (Tylenol), 500 MG PO PRN Biotin (Biotin), 1 MG PO HS Ibuprofen Tab (Advil), 200 MG PO PRN Levothyroxine Sodium (Levothyroxine Sodium), 1 TAB PO QAM Lisinopril (Lisinopril), 2.5 MG PO HS Sennosides-Docusate Sodium (Stool Softener), 1 TAB PO PRN Terbinafine Hcl (Terbinafine Hcl), 1 TAB PO HS Warfarin Sod (Coumadin), 3 MG PO THURS Warfarin Sodium (Coumadin), 6 MG PO 6XWEEK [Calcium], 1 TAB PO PRN Physical Examination Skin: warm/dry, no rash Eyes: normal inspection, EOMI, sclerae normal ENT: normal ENT inspection, pharynx normal Head: normocephalic, atraumatic Neck: supple, no adenopathy, trachea midline Respiratory/Chest: lungs clear, normal breath sounds, no respiratory distress Cardiovascular: regular rate, rhythm, no edema, no murmur Abdomen / GI: normal bowel sounds, non tender Back: normal inspection Extremities: normal inspection, normal range of motion, + pertinent finding ( pain with rom right knee) Neurologic/Psych: no motor/sensory deficits, alert, normal reflexes, oriented x 3 Diagnosis Loose patella component Plan of Treatment Pt to be admitted and undergo revision right tka patella only. resume coumadin nite of surgery.
[~2017-09-15] VITALS: Ht 149.9 cm; Wt 66.4 kg
[2017-09-15] VITALS (10 sets, daily range): BP systolic 116–159; BP diastolic 72–83; PULSE 68–77; TEMP 36.3–36.4; O2SAT 97–100; Ht 149.9 cm; Wt 66.4 kg
[2017-09-15] MEDS: TRANEXAMIC ACID INJ 1,000 MG x 2 Bags IV SCH ×4 (06:30→09:13)
[~2017-09-15 06:49] MED LIST changes: +BIOT1CAP8 PO; +BUPIVACAINE 0.25% 30 ML VIAL ONE; +BUPIVACAINE 0.5 % 5 MG/1 ML PF 10ML VIAL ONE; +CALC-51 PO; -CALCTAB5 PO; +CEFAZOLIN 1000MG IV PUSH 7.5 ML IV SCH; -CEFAZOLIN 2000 MG/60 ML D5W IV SCH; +CMD3 PO; -GABAPENTIN 300 MG CAP PO SCH; +IBUP-103 PO; -LACTATED RINGER'S 1000ML 500 ML IV ONE; +LACTATED RINGER'S 1000ML 500 ML IV SCH; +LEVO75TA5 PO; +MIDAZOLAM HCL 1 MG/ML 2ML VIAL ONE; -OXYCODONE HCL 10 MG TABCR (OXYCONTIN) PO SCH; -POLYMYXIN B SULFATE 100,000 UNITS in NSS 100ML IR SCH; +ROPIVACAINE 5MG/ML 30 ML 150 MG, BUPIVACAINE 0.5% MPF INJ 30 ML, EpINEphrine HCL INJ 0.... INFIL SCH; -ROPIVACAINE 5MG/ML 30 ML 150 MG, BUPIVACAINE/EPINEPHR 0.5% MPF 30 ML, KETOROLAC TROMETH... INFIL SCH; +SENNTAB23 PO; -SIMV10TA2 PO; -SYN75 PO; +TERB250T47 PO; +TYLOTC500 PO; -VANCOMYCIN INJ 400 MG in NSS 100ML IR SCH; -WARF2TAB PO
[2017-09-15 08:10] LABS: PTT PATIENT 26.9 SECONDS (21.0-31.0)
[2017-09-15] MEDS ORDERED: FENTANYL CITRATE INJ 50 MCG/1 ML 2 ML VIAL ONE (08:23)
[2017-09-15] MEDS ORDERED: ONDANSETRON INJ 2 MG/ML 2 ML VIAL ONE (08:24)
[2017-09-15] MEDS ORDERED: PROPOFOL IV EMULSION 10 MG/ML 20 ML VIAL IV ONE (08:24)
[2017-09-15] MEDS ORDERED: LIDOCAINE HCL 2% 2 ML VIAL (20MG/ML) ONE (08:24)
[2017-09-15] MEDS ORDERED: FENTANYL CITRATE INJ 50 MCG/1 ML 2 ML VIAL IV PRN (08:30)
[2017-09-15] MEDS ORDERED: ONDANSETRON INJ 2 MG/ML 2 ML VIAL IV PRN ×2 (08:30→10:45)
[2017-09-15] MEDS ORDERED: EpHEDrine SULFATE INJ 50 MG/ML AMP IV PRN (08:30)
[2017-09-15] MEDS ORDERED: ATROPINE SULFATE 0.1 MG/ML 5ML SYR IV PRN (08:30)
[2017-09-15] MEDS ORDERED: ORTHO JOINT ANESTHETIC ONE (09:00)
[2017-09-15] MEDS ORDERED: BACITRACIN 50000 UNIT VIAL ONE (09:00)
[2017-09-15] MEDS ORDERED: POVIDONE-IODINE OP SOLN 30 ML BTL ONE (09:00)
--- NOTE | 2017-09-15 10:31 | [facility] Operative Report ---
Operative Report Operative Date Sep 15, 2017. Pre-Operative Diagnosis Loose Patella Component Right Total Knee Arthroplasty Post-Operative Diagnosis Right Knee Instability and Failed Patella Procedure(s) Performed Right Knee: Revision right tka, Patella and Poly Exchange only Surgeon Dr. Brown Ballistics Expert Forensic Surgeon(s) TAYLOR Moraes Estimated Blood Loss 10 ml Findings Grossly loose patellar component which was floating in the knee, significant instability with varus and valgus stress. Specimens A. Removed Hardware Right Knee (Patella and Poly) Drains None Anesthesia Type MAC Spinal Regional Complication(s) none Disposition no Recovery Room / PACU Description of Procedure Implants used were a size 15 mm polyethylene for a [employer] 1 the size [address], and a size 26 mm patella component. Indication very pleasant female who underwent an uncomplicated right knee replacement in 2008 with 1 of my previous partners. Patient doing well for the last year and found to have a loose patella and instability of the right knee. Patient workup for infection was negative and decided to proceed with operative intervention because of persistent pain. Patient brought to the operating room probably identified by myself anesthesia nursing staff she was given a spinal anesthetic was probably anesthetized placed on the operating room table in a supine position and tourniquet was applied to the right upper thigh. The tourniquet was then inflated after the right leg was then prepped and draped in standard orthopedic fashion. Then made an incision centered directly over the old incision then dissected down through the subcutaneous tissue made large medial lateral flaps performed a medial capsulotomy and upon entering the knee the patella component was floating within the knee joint itself. We then removed the patella component irrigated the wound. Then cleaned up the remaining patella and reamed the patella just a few millimeters get a good bleeding bed of bone, then sized patella and it measured to be a size 26 only. Then continue with the polyethylene which was removed easily they will trial components in place a size 15 mm give us excellent stability in both flexion and extension. Then we thoroughly irrigated wound, mixing cement implant of the polyethylene in place with minimal difficulty and then cemented the patella component in place remove the excess cement. Irrigated again then closed the capsule with an 0 PDS suture the deep dermis interrupted 2-0 Vicryl suture the final skin layer with castillo impatiently recovery room in stable condition after sterile dressings were applied. Due to the complex nature of the procedure, the entire surgery was performed with the operational assistance of Hermila BERMUDEZ)Kyle. The claims assistant was under direct supervision, was involved in the actual performance of all aspects of the surgical procedure including hemostasis, tissue retraction and incision, instrument management, patient positioning, and wound closure. I attest to the content of the Intraoperative Record and any orders documented therein. Any exceptions are noted below.
[2017-09-15] MEDS ORDERED: ALUMINUM/MAGNESIUM/SIMETH (MAALOX MAX) 30 ML UDC PO PRN (10:45)
[2017-09-15] MEDS ORDERED: ZOLPIDEM TARTRATE 5 MG TAB PO PRN (10:45)
[2017-09-15] MEDS ORDERED: OXYCODONE HCL IR 5 MG TAB (IMMEDIATE RELEASE) PO PRN (10:45)
[2017-09-15] MEDS ORDERED: BISACODYL 10 MG SUPP PR PRN (10:45)
[2017-09-15] MEDS ORDERED: MAGNESIUM HYDROXIDE SUSP 30 ML UDC PO PRN (10:45)
--- NOTE | 2017-09-15 11:51 | Anesthesiology Progress Note ---
Anesthesia Post Op Note Date & Time Sep 15, 2017 at 11:50 Vital Signs Pain Intensity: 0 Vital Signs Past 12 Hours Date Time Temp Pulse Resp B/P (MAP) Pulse Ox O2 Delivery O2 Flow Rate FiO2 09/15/17 11:35 37.5 78 20 124/77 99 Nasal Cannula 2 09/15/17 11:25 71 12 113/71 99 Nasal Cannula 2 09/15/17 11:15 37.0 73 14 114/67 100 Nasal Cannula 2 09/15/17 11:05 79 12 107/75 100 Nasal Cannula 2 09/15/17 10:55 71 14 117/66 100 Nasal Cannula 2 09/15/17 10:48 37.2 74 14 109/67 100 Nasal Cannula 2 09/15/17 07:45 36.4 68 18 159/78 98 Room Air Notes Mental Status: alert / awake / arousable, participated in evaluation Pt Amnestic to Procedure: Yes Nausea / Vomiting: adequately controlled Pain: adequately controlled Airway Patency, RR, SpO2: stable & adequate BP & HR: stable & adequate Hydration State: stable & adequate Neuraxial Anesthesia: was administered, sensory block is resolving Anesthetic Complications: no major complications apparent
[2017-09-15] MEDS: SODIUM CHLORIDE 0.9% 1000ML 1,000 ML IV SCH ×2 (12:26→22:39)
[2017-09-15] MEDS ORDERED: WARFARIN SOD 6 MG TAB PO SCH (16:00)
[2017-09-15] MEDS: ACETAMINOPHEN 500 MG TAB PO SCH (16:28)
[2017-09-15] MEDS: CEFAZOLIN IV 2,000 MG in SYRINGE 0 ML IV SCH (17:34)
[2017-09-15] MEDS ORDERED: LISINOPRIL 2.5 MG TAB PO SCH (21:00)
[2017-09-15] MEDS ORDERED: ASPIRIN 81 MG ECTAB PO SCH (21:00)
[2017-09-15] MEDS: DOCUSATE SODIUM 100 MG CAP PO SCH (21:19)
[2017-09-16] MEDS: CEFAZOLIN IV 2,000 MG in SYRINGE 0 ML IV SCH (00:11)
[2017-09-16] MEDS: ACETAMINOPHEN 500 MG TAB PO SCH ×2 (00:11→08:18)
[2017-09-16 03:55] VITALS: BP 116/71; PULSE 64; TEMP 36.5; O2SAT 97
[2017-09-16] MEDS ORDERED: LEVOTHYROXINE 75 MCG TAB PO SCH (06:00)
[2017-09-16 06:06] LABS: HEMATOCRIT 33.6 % (37-47); HEMOGLOBIN 11.5 g/dL (12.0-16.0); MEAN CELL VOLUME 91.3 fL (80-100); MEAN CORPUSCULAR HEMOGLOBIN 31.3 pg (25-34); MEAN CORPUSCULAR HGB CONC 34.2 g/dl (32-36); MEAN PLATELET VOLUME 9.2 fL (7.4-10.4); PLATELET COUNT 196 K/uL (130-400); RED CELL DISTRIBUTION WIDTH CV 13.9 % (11.5-14.5); RED CELL DISTRIBUTION WIDTH SD 45.5 fL (36.4-46.3); WHITE BLOOD COUNT 8.02 K/uL (4.8-10.8)
[2017-09-16 07:30] VITALS: O2SAT 99
[2017-09-16] MEDS ORDERED: DEXAMETHASONE INJ 10 MG in SYRINGE 0 ML IV ONE (07:30)
[2017-09-16 07:41] VITALS: BP 118/71; PULSE 62; TEMP 36.3; O2SAT 99
[2017-09-16] MEDS: SODIUM CHLORIDE 0.9% 1000ML 1,000 ML IV SCH (08:18)
[2017-09-16] MEDS: DOCUSATE SODIUM 100 MG CAP PO SCH (08:20)
--- NOTE | 2017-09-16 08:29 | Orthopedic Progress Note ---
Orthopedic Progress Note Date of Service Sep 16, 2017. Subjective Post OP Day: 1 Reports: feeling well, pain controlled w PO medications, Denies: complaints Objective calves soft nontender, N/V intact, dressing C/D/I, A&O x3, toes mobile Date Time Temp Pulse Resp B/P (MAP) Pulse Ox O2 Delivery O2 Flow Rate FiO2 09/16/17 07:41 36.3 62 19 118/71 (87) 99 Room Air 09/16/17 03:55 36.5 64 16 116/71 (86) 97 Room Air 09/16/17 00:15 Room Air 09/15/17 23:00 36.4 68 16 124/74 (91) 97 Room Air 09/15/17 19:05 36.3 70 16 134/72 (92) 97 Room Air 09/15/17 16:15 97 Room Air 09/15/17 15:00 36.4 69 16 116/74 (88) 97 Nasal Cannula 2.0 09/15/17 14:00 36.3 69 18 134/79 (97) 99 Nasal Cannula 2.0 09/15/17 12:26 36.4 69 18 137/83 (101) 100 Nasal Cannula 2.0 09/15/17 12:15 100 Nasal Cannula 2.0 09/15/17 12:07 100 Nasal Cannula 2.0 09/15/17 11:58 36.4 77 18 129/81 (97) 99 Nasal Cannula 2.0 09/15/17 11:35 37.5 78 20 124/77 99 Nasal Cannula 2 09/15/17 11:25 71 12 113/71 99 Nasal Cannula 2 09/15/17 11:15 37.0 73 14 114/67 100 Nasal Cannula 2 09/15/17 11:05 79 12 107/75 100 Nasal Cannula 2 09/15/17 10:55 71 14 117/66 100 Nasal Cannula 2 09/15/17 10:48 37.2 74 14 109/67 100 Nasal Cannula 2 Laboratory Results 24 Hours: Test 09/16/17 05:33 Hematocrit 33.6 % Hemoglobin 11.5 g/dL Prothromb Time International Ratio 1.0 Prothrombin Time 10.7 SECONDS Assessment & Plan Assessment: POD 1 s/p Right TKA poly change and revision of patella Plan: PT/OT Planning for OPPT DC to home today if progressing with PT Inhouse Planning Pain Management: PO Tylenol, Oxy IR DVT Prophylaxis: TEDs, SCDs, Coumadin Discharge Planning Discharge Planning: home with oppt
[2017-09-16] MEDS ORDERED: RXC5 PO (08:31)
[2017-09-16] MEDS ORDERED: TYLOTC500 PO (08:31)
--- NOTE | 2017-09-16 08:35 | Discharge Instructions ---
Discharge Instructions Date of Service Sep 16, 2017. Admission Reason for Admission: Right Knee Complications D/T Internal Orthopedic D Discharge Discharge Diagnosis / Problem: Right TKA instability; Right TKA patellar failure Discharge Goals Goal(s): Decrease discomfort, Improve function, Increase independence Activity Recommendations Activity Limitations: per Instructions/Follow-up section . Instructions / Follow-Up Instructions / Follow-Up ACTIVITY RECOMMENDATIONS: SEE DR BRISCOE'S INSTRUCTIONS ON "DO'S AND DON'TS" OF OF TOTAL KNEE REPLACEMENT SELF CARE INSTRUCTIONS AFTER TOTAL KNEE REPLACEMENT A. You may need to continue a physical therapy program after discharge from the hospital. There are several options available to you. Your doctor will assist you in selecting the best one for you. 1. An out-patient facility 2 to 3 times a week for therapy or home therapy. 2. Continue working on all exercises taught to you in the hospital. Your goals should be to increase bending of your knee to 90 degrees and beyond and to fully straighten your knee. B. You may progress at your own pace from walking with a walker or crutches to a cane; then to no assistive devices. C. Make walking a part of your daily routine. Be up as much as comfortable with rest periods throughout the day. Rest with leg elevation is very important. Use the ice wrap frequently for the first 3-4 weeks. D. There are no restrictions on activities. You may ride in a car, shop, participate in roll grinder and all social activities. E. Wear the long elastic stockings (CARSON hose) 20 hours a day for 2 weeks after surgery. They can be removed several times a day for laundering and for a bath. F. You may shower, no tub baths until cleared by your doctor. SPECIAL CARE INSTRUCTIONS: VERY IMPORTANT TO READ AND REVIEW A. There are a few signs you need to watch for after you are home. Call [facility] if you notice any of the followin. Increased severe knee pain. Some pain is expected especially when you exercise. 2. Increased swelling in your leg or knee; pain or swelling of the calf muscle in either lower leg. 3. Any fluid drainage from the incision. 4. Shortness of breath or chest pain. B. Please call [facility] at if you have any concerns or questions about your operation or recovery. The doctor or his nurse will return your call promptly. C. You must take antibiotics before dental work, bladder, bowel or other surgery. Your doctor will provide you with a permanent care to carry describing this precaution. IMPORTANT: * RESUME YOUR COUMADIN TABLET AND CONTINUE TO HAVE YOUR BLOOD DRAWN (INR DRAWS ) REGULARLY AT YOUR COUMADIN CLINIC * CALL IF INCREASED PAIN, REDNESS, DRAINAGE OR FEVER GREATER THAT 101. * WEAR CARSON HOSE 20 HOURS PER DAY FOR 2 WEEKS. * CHANGE YOUR DRESSING ON 09/17/17. LEAVE THE SILVERLON DRESSING IN PLACE ( LOOKS LIKE LARGE BANDAID) Then follow these instructions --> Silverlon- This is a large adhesive bandage that contains silver ions. This helps your incision heal by fighting off bacteria and protecting it from the outside environment. You are permitted to shower with this dressing. This will remain on your incision for 7 days and then should be removed. Some visible blood or drainage through the dressing window is normal. If there is significant drainage or leaking noted before the 7 days notify your doctor's office immediately. Once removed, keep incision clean and dry. If there is any drainage or redness noted, please call your surgeon. . FOLLOW UP VISIT: If appointment is not already scheduled: Please call [facility] to make a follow-up appointment for 2 weeks after your surgery at . Current Hospital Diet Patient's current hospital diet: Regular Diet Discharge Diet Recommended Diet: Regular Diet Procedures Procedures Performed: Right Knee: Revision right tka, Patella and Poly Exchange only Pending Studies Studies pending at discharge: no Medical Emergencies . Who to Call and When: Medical Emergencies: If at any time you feel your situation is an emergency, please call 911 immediately. . Non-Emergent Contact Non-Emergency issues call your: Surgeon Call Non-Emergent contact if: temperature is above 101.5, your pain is not controlled, your pain is worsening, wound has increased drainage, wound has increased redness . "Provider Documentation" section prepared by Niko Paredes. . [place] Drug Monitoring Program Search Results: patient reviewed within database, no issues identified
[2017-09-16 13:12] VITALS: BP 118/71; PULSE 62; TEMP 36.3; O2SAT 99
--- NOTE | 2017-09-16 13:34 | Anesthesiology Progress Note ---
Anesthesia Post Op Note Date & Time Sep 16, 2017 at 13:33 Vital Signs Pain Intensity: 0.0 Vital Signs Past 12 Hours Date Time Temp Pulse Resp B/P (MAP) Pulse Ox O2 Delivery O2 Flow Rate FiO2 09/16/17 13:12 36.3 62 19 99 Room Air 09/16/17 07:41 36.3 62 19 118/71 (87) 99 Room Air 09/16/17 07:30 99 Room Air 09/16/17 03:55 36.5 64 16 116/71 (86) 97 Room Air Notes Mental Status: alert / awake / arousable, participated in evaluation Pt Amnestic to Procedure: Yes Nausea / Vomiting: adequately controlled Pain: adequately controlled Airway Patency, RR, SpO2: stable & adequate BP & HR: stable & adequate Hydration State: stable & adequate Neuraxial Anesthesia: sensory block resolved Anesthetic Complications: no major complications apparent
[2017-09-18] MEDS ORDERED: WARFARIN SOD 3 MG TAB PO SCH (16:00)
== END 2017-09-16 16:00 | disposition home health service (06) | DRG 468 ==
LOC: C.ACU 06:49 → C.3E 10:35 → ENRESERV 11:18
PROVIDERS: ADMIT Orthopaedic Surgery; ATTEND Orthopaedic Surgery
PROC: 0SWC0JC Revision of Synthetic Substitute in Right Knee Joint, Patellar Surface, Open Approach (ICD-10-PCS; principal; 2017-09-15 09:45)
PROC: 0SWC09Z Revision of Liner in Right Knee Joint, Open Approach (ICD-10-PCS; principal; 2017-09-15 09:45)
DX: T84.022A Instability of internal right knee prosthesis, initial encounter (principal); Z79.01 Long term (current) use of anticoagulants; Y79.2 Prosthetic and other implants, materials and accessory orthopedic devices associated with adverse incidents